=== PATIENT | female | born 1965 | race Caucasian/White ===

== ENCOUNTER 2017-08-24 19:14 | Emergency (ER) | payer OTHER ==
--- NOTE | 2017-08-24 19:21 | UC ---
Lower Extremity/Ankle HPI - HPI Summary HPI Summary: 51 yo female presents with LEFT ankle pain and swelling s/p inversion injury about 1 hour [employer]. She tells me that she was hiking one of the local trails and was going down a slope when she inverted her left ankle and fell. Had immediate pain soon followed by swelling. Was able to ambulate, but had significant pain and was limping. Has not taken anything po for pain. Denies numbness or tingling. - History of Current Complaint Stated Complaint: ANKLE INJURY Time Seen by Provider: 08/24/17 19:20 Hx Obtained From: Patient Onset/Duration: Sudden Onset Severity Initially: Severe Severity Currently: Severe Pain Intensity: 9 Pain Scale Used: 0-10 Numeric Aggravating Factor(s): Standing, Ambulation Able to Bear Weight: Yes - Allergies/Home Medications Allergies/Adverse Reactions: Allergies Allergy/AdvReac Type Severity Reaction Status Date / Time No Known Allergies Allergy Verified 08/24/17 19:27 Home Medications: Home Medications Levothyroxine TAB* [Synthroid TAB*] 100 mcg PO DAILY 08/24/17 [History Confirmed 08/24/17] PMH/Surg Hx/FS Hx/Imm Hx Previously Healthy: Yes Endocrine History: Hypothyroidism - Family History Known Family History: Positive: None - Social History Occupation: Employed Full-time Lives: With Family Alcohol Use: Occasionally Substance Use Type: None Smoking Status (MU): Never Smoked Tobacco Review of Systems Constitutional: Negative Skin: Negative Respiratory: Negative Cardiovascular: Negative Neurovascular: Negative Musculoskeletal: Other: - Left ankle pain Neurological: Negative Psychological: Negative All Other Systems Reviewed And Are Negative: Yes Physical Exam - Summary Physical Exam Summary: GENERAL: NAD. WDWN. SKIN: No rashes, sores, lesions, or open wounds. NECK: Supple. Nontender. No lymphadenopathy. CHEST: No accessory muscle use. Breathing comfortably and in no distress. CV: Pulses intact PT and DP. Brisk cap refill. MSK: LEFT ankle: Moderate TTP over lateral malleolus. Moderate edema. Pain with inversion. Negative talar tilt. No increased laxity. NEURO: Alert. Sensations intact and symmetric B/L LEs PSYCH: Age appropriate behavior. Triage Information Reviewed: Yes Vital Signs: Vital Signs: Temp Pulse Resp BP Pulse Ox 98.6 F 64 16 140/94 100 08/24/17 19:22 08/24/17 19:22 08/24/17 19:22 08/24/17 19:22 08/24/17 19:22 Lower Extremity Course/Dx - Course Course Of Treatment: XR: IMPRESSION: SOFT TISSUE SWELLING, NO FRACTURE IS SEEN. Pt has crutches at home and said that she would prefer to use those. FLORY wrap. Gel ankle splint. She currently sees an Orthopedist in her home town and prefers to follow up with them. - Differential Dx/Diagnosis Provider Diagnoses: Left ankle sprain Discharge - Sign-Out/Discharge Documenting (check all that apply): Discharge/Admit/Transfer - Discharge Plan Condition: Stable Disposition: HOME Patient Education Materials: Ankle Sprain (ED) Referrals: No Primary Care Phys,NOPCP [Primary Care Provider] - Sports [facility] [Provider Group] - If Needed Additional Instructions: If you develop a fever, shortness of breath, chest pain, new or worsening symptoms - please call your PCP or go to the ED. Your blood pressure was high at todays visit. Please see your primary provider within 4 weeks for recheck and re-evaluation. 1) Rest, Ice, and elevate your ankle as much as possible 2) Use your crutches and the gel splint as needed for added stability and comfort 3) Please follow up as soon as possible with your Orthopedic doctor for re-check - Billing Disposition and Condition Condition: STABLE Disposition: Home
[2017-08-24 19:28] VITALS: BP 140/94
--- NOTE | 2017-08-24 19:52 | RAD ---
INDICATION: Left ankle injury. TECHNIQUE: 3 views of the left ankle were obtained. FINDINGS: Soft tissue swelling is noted along the anterolateral aspect of the ankle. No fracture is seen. Joint spaces appear maintained. IMPRESSION: SOFT TISSUE SWELLING, NO FRACTURE IS SEEN.
[2017-08-24] MEDS ORDERED: Ibuprofen TAB* 600 MG PO ONE (19:58)
== END 2017-08-24 20:18 | disposition home or self-care (01) ==
LOC: UCEAST 19:14
DX: S93.402A Sprain of unspecified ligament of left ankle, initial encounter (principal); X50.0XXA Overexertion from strenuous movement or load, initial encounter; Y93.01 Activity, walking, marching and hiking; Y92.838 Other recreation area as the place of occurrence of the external cause; E03.9 Hypothyroidism, unspecified
CPT/HCPCS: 99202; A9270-GY; G0463